=== PATIENT | female | born 1925 | race Caucasian/White ===

== ENCOUNTER 2016-09-13 12:32 | Inpatient (IN) | payer OTHER ==
[2016-09-13 13:46] LABS: BASOPHIL 1.1 % (0-2.0); EOSINOPHIL 2.5 % (0-4.5); MCH 29.5 pg (25.7-33.7); MCHC 32.5 g/dl (32.0-36.0); MEAN CELL VOLUME 90.7 fl (80-96); MEAN PLT VOLUME 10.5 fl (7.5-11.1); NEUTROPHILS 56.6 % (42.8-82.8); PLATELET COUNT 181 K/MM3 (134-434); RDW 13.8 % (11.6-15.6); WHITE BLOOD COUNT 7.1 K/mm3 (4.0-10.0)
--- NOTE | 2016-09-13 13:50 | PDOC ---
Attending Attestation - Resident Resident Name: SusanSabas - ED Attending Attestation I have performed the following: I have examined & evaluated the patient, The case was reviewed & discussed with the resident, I agree w/resident's findings & plan, Exceptions are as noted - HPI HPI: 09/13/16 13:50 89yF hx of chf, htn, pancreatitic tumors presents with complaint of exertional sob/palpitations over the past week, went to her GI doctor who noticed pt seeemd irregular and sent to the ED for evaluation for possible afib. pt notes when she is at rest, she feels asypmtomatic, but any ambulation makes her feel generally weak and sob. pt denies any cough, cp, diaphoresis, n/v. pt currently asymtomatic. on exam pt in well appearing, i no distress lungs clear HR regular 09/13/16 16:39 case neftali ramírez request JOHANNA w/ second trop and lasix > observation in telmetry will notify dr. Caro 09/13/16 16:55 case dw Indrain from Dr Wilson service agree with tele obs for management of KIR[place] Case discussed in detail with admitting physician including history, physical exam and ancillary studies. Admitting physician has assumed care for the patient, will follow all pending diagnostics and will complete the evaluation and treatment. - Physicial Exam PE: 09/14/16 17:43 see above - Medical Decision Making 09/14/16 17:43 see above Heart Score/ECG Review - ECG Impressions Comment:: 09/13/16 16:56 Twelve-lead EKG was performed and reviewed by me. There is normal sinus rhythm with a normal rate. Rate of 81 LBBB PVCs present
[2016-09-13 14:00] VITALS: BMI 41.1
[2016-09-13 14:00] LABS: INR 1.13 (0.82-1.09); PROTHROMBIN TIME (PATIENT) 12.5 SEC (9.98-11.88)
[2016-09-13 14:02] LABS: ACTIVATED PTT 29.9 SECONDS (26.9-34.4)
[2016-09-13 14:15] LABS: ALBUMIN 3.4 g/dl (3.4-5.0); ANION GAP 9 (8-16); CALCIUM 8.9 mg/dL (8.5-10.1); CO2 24 mmol/L (21-32); CREATININE 1.4 mg/dL (0.55-1.02); GLUCOSE,RANDOM 95 mg/dL (74-106); SGPT/ALT 19 U/L (12-78)
[2016-09-13 14:19] LABS: ALK PHOS 143 U/L (45-117); BILIRUBIN,TOTAL 0.6 mg/dL (0.2-1.0); TOT PROT 6.2 g/dl (6.4-8.2); TROPONIN I < 0.02 ng/ml (0.00-0.05)
[2016-09-13 14:31] LABS: SGOT/AST 28 U/L (15-37)
--- NOTE | 2016-09-13 15:13 | PDOC ---
History of Present Illness <Sabas Davis - Last Filed: 09/13/16 15:16> <Jeffrey Delcid - Last Filed: 09/13/16 16:54> - General Chief Complaint: Palpitations Stated Complaint: PCP SENT Time Seen by Provider: 09/13/16 13:02 - History of Present Illness Initial Comments: 09/13/16 15:05 89F with pmh of CHF, PVC's, HTN and pancreatic tumors who presented to the ED after an episode of palpitation and shakiness while at her GI provider Dr. Munroe 's clinic at 9:30 who checked her pulse and told her to go to the ED for possible A-fib. Patient was back to baseline in this current encounter. Patient regularly checks her BP and HR on bracelet which indicated 137/61 and 40 at 7:45am. No chest chest pain, diaphoresis or shortness of breath. (Sabas Davis) Past History - Past Medical History Anemia: No Asthma: No Cancer: No Cardiac Disorders: No (heart catherization) CVA: No COPD: No CHF: No Dementia: No Diabetes: No GI Disorders: Yes (Pacreatic tumors, gallstones) Disorders: Yes (INTERSTIM,INCONTINENCE) HTN: Yes Hypercholesterolemia: No Liver Disease: No Seizures: No Thyroid Disease: No Other medical history: bladder neurostimulator RT buttocks - Surgical History Abdominal Surgery: No Appendectomy: Yes Cardiac Surgery: No Cholecystectomy: No Lung Surgery: No Neurologic Surgery: Yes (LAMINECTOMY WITH FUSION) Orthopedic Surgery: Yes (FX ANKLE WITH HARDWARE) - Immunization History Immunization Up to Date: Yes - Psycho/Social/Smoking Cessation Hx Anxiety: No Suicidal Ideation: No Smoking History: Never smoked Have you smoked in the past 12 months: No Information on smoking cessation initiated: Yes Hx Alcohol Use: No Drug/Substance Use Hx: No Substance Use Type: None Hx Substance Use Treatment: No <Sabas Davis - Last Filed: 09/13/16 15:16> <Jeffrey Delcid - Last Filed: 09/13/16 16:54> - Past Medical History Allergies/Adverse Reactions: Allergies Allergy/AdvReac Type Severity Reaction Status Date / Time nitrofurantoin Allergy Intermediate FLU LIKE Verified 09/13/16 12:53 [From Macrobid] SYMPTOMS nitrofurantoin Allergy Intermediate FLU LIKE Verified 09/13/16 12:53 macrocrystalline SYMPTOMS [From Macrobid] naproxen [From Naprosyn] Allergy Verified 09/13/16 12:53 Home Medications: Ambulatory Orders Aspirin Coated [Ecotrin -] 81 mg PO DAILY 07/12/13 Cholecalciferol (Vitamin D3) [Vitamin D] 4,000 unit PO DAILY 07/12/13 Dexlansoprazole [Dexilant -] 60 mg PO DAILY 07/12/13 Econazole Nitrate 1% [Spectazole 1%] 85 gm TP DAILY 07/12/13 Folic Acid - 3 mg PO TID 07/12/13 Polysorbate 80/Glycerin [Refresh Dry Eye Therapy Drops] 1 each OP BID 07/12/13 Celecoxib [Celebrex] 200 mg PO ASDIR 07/13/13 Ramipril [Altace] 10 mg PO DAILY capsule 03/02/14 Cranberry Conc/C/Bacill Coag [Cranberry Tablet] 2 cap PO DAILY 09/19/14 Cyanocobalamin [Vitamin B12 -] 1,000 mcg PO DAILY 09/19/14 Gluc HCl/Csana/Gly-Am-Gly,Mx/C [Cosamin Ds Capsule] 1 each PO DAILY 09/19/14 Rotigotine [Neupro] 1 each TD DAILY 09/19/14 Furosemide [Lasix -] 20 mg PO DAILY 09/21/14 Furosemide [Lasix -] 40 mg PO AM 09/21/14 Calcium Citrate 1 tab PO DAILY 09/27/15 Carvedilol [Coreg -] 3.125 mg PO DAILY 09/27/15 Lactobacillus Acidophilus [Acidophilus] 1 each PO PRN 09/27/15 Tolterodine Tartrate [Detrol LA] 1 cap PO HS 09/27/15 Spironolactone [Aldactone] 25 mg PO DAILY 10/02/15 Cardiac Specific PMH - Complaint Specific PMHX Pacemaker: No Other History: sinus rhythm with PVC's on EKG oct 2015 <Sabas Davis - Last Filed: 09/13/16 15:16> Review of Systems - Review of Systems Constitutional: No: Symptoms Reported HEENTM: No: Symptoms Reported Respiratory: Yes: SOB with Exertion. No: Cough, Orthopnea, Stridor, Wheezing, Hemoptysis Cardiac (ROS): Yes: See HPI, Irregular Heart Rate, Palpitations. No: Chest Pain , Syncope, Chest Tightness ABD/GI: No: Symptoms Reported : No: Symptoms Reported Musculoskeletal: No: Symptoms Reported Integumentary: No: Symptoms Reported Neurological: Yes: Tremors <Sabas Davis Last Filed: 09/13/16 15:16> *Physical Exam - Physical Exam General Appearance: Yes: Nourished, Appropriately Dressed. No: Apparent Distress, Moderate Distress HEENT: positive: EOMI, HAI Neck: positive: Normal Thyroid. negative: Tender Respiratory/Chest: positive: Lungs Clear, Normal Breath Sounds. negative: Chest Tender, Respiratory Distress Cardiovascular: positive: Regular Rate, S1, S2. negative: Irregular Extremity: positive: Normal Capillary Refill, Normal Inspection, Normal Range of Motion. negative: Coldness, Cyanosis, Delayed Capillary Refill, Pedal Edema , Swelling, Calf Tenderness Integumentary: positive: Normal Color Neurologic: positive: Fully Oriented, Alert, Normal Mood/Affect <Sabas Davis - Last Filed: 09/13/16 15:16> - Vital Signs Last Vital Signs Temp Pulse Resp BP Pulse Ox 98.2 F 81 20 135/80 99 09/13/16 16:07 09/13/16 16:07 09/13/16 16:07 09/13/16 16:07 09/13/16 16:07 Heart Score/ECG Review - History History: Moderately suspicious - Age Age: >/= 65 - Risk Factors Risk Factors Heart Score: No Hx Hypercholesterolemia, Yes Hx Hypertension, No Hx Diabetes, Yes Positive family hx of cardiac disease - Troponin Troponin: </= normal limit - ECG Intrepretation Rhythm: PVC(s) <Sabas Davis - Last Filed: 09/13/16 15:16> ED Treatment Course - LABORATORY CBC & Chemistry Diagram: 09/13/16 13:19 09/13/16 13:19 <Sabas Davis - Last Filed: 09/13/16 15:16> - LABORATORY CBC & Chemistry Diagram: 09/13/16 13:19 09/13/16 13:19 <Jeffrey Delcid - Last Filed: 09/13/16 16:54> - ADDITIONAL ORDERS Additional order review: Laboratory Results 09/13/16 09/13/16 13:19 13:19 INR 1.13 PTT (Actin FS) 29.9 Sodium 140 Potassium 5.3 H D Chloride 107 Carbon Dioxide 24 D Anion Gap 9 BUN 22 H Creatinine 1.4 H Creat Clearance w eGFR 35.41 Random Glucose 95 Calcium 8.9 Total Bilirubin 0.6 D AST 28 D ALT 19 Alkaline Phosphatase 143 H Creatine Kinase 139 Troponin I < 0.02 Total Protein 6.2 L Albumin 3.4 09/13/16 13:19 RBC 4.40 MCV 90.7 MCHC 32.5 RDW 13.8 MPV 10.5 Neutrophils % 56.6 Lymphocytes % 29.1 Monocytes % 10.7 H Eosinophils % 2.5 Basophils % 1.1 - RADIOLOGY Radiology Studies Ordered: Category Date Time Status CHEST X-RAY PORTABLE* [RAD] Stat Radiology 09/13/16 16:10 Taken Medical Decision Making <Sabas Davis - Last Filed: 09/13/16 15:16> <Jeffrey Delcid - Last Filed: 09/13/16 16:54> - Medical Decision Making 09/13/16 15:22 89F with pmh of CHF, PVC's , pancreatic tumors and HTN who presented to the ED for palpitations and shakiness R/O VA, acute A-fib. labs, lytes coags and trops all negative. EKG shows 2:1 sinus rhythm with regular PVC's but but patient was feeling at her baseline we she got to the ED. 3pm: Talked to Dr. Mendoza concrete pointer for Dr Iglesias, the patient's caretaker, who will see the patient in the ED. (Sabas Davis) *DC/Admit/Observation/Transfer <Sabsa Davis - Last Filed: 09/13/16 15:16> - Discharge Dispostion Admit: Yes <Jeffrey Delcid - Last Filed: 09/13/16 16:54> Diagnosis at time of Disposition: Short of breath on exertion, Palpitations - Discharge Dispostion Condition at time of disposition: Stable
--- NOTE | 2016-09-13 15:49 | CON.CARD ---
Consult Consult Specialty:: Cardiology Referred by:: Emergency Medicine Reason for Consultation:: PVC, palpitations - History of Present Illness Chief Complaint: Palpitations, [place], exertional fatigue History of Present Illness: 89 yo female h/o HTN, hyperlipidemia, PVC, LV systolic dysfunction presents with episode of non-radiating chest pressure after swimming without associated sxs of dyspnea, near or true syncope, orthopnea, PND or worsening chronic LE edema, currently asymptomatic. - History Source History Provided By: Patient Limitations to Obtaining History: No Limitations - Past Medical History Cardio/Vascular: Yes: CHF, HTN, Mitral Insufficiency Gastrointestinal: Yes: Constipation Infectious Disease: Yes: Other (kleb UTI treated with kefzol/keflex) Musculoskeletal: Yes: Chronic low back pain, Osteoarthritis Endocrine: Yes: Other (obesity) - Past Surgical History Past Surgical History: Yes: Hysterectomy, Tonsillectomy - Alcohol/Substance Use Hx Alcohol Use: No - Smoking History Smoking history: Never smoked Have you smoked in the past 12 months: No Home Medications - Allergies Allergies/Adverse Reactions: Allergies Allergy/AdvReac Type Severity Reaction Status Date / Time nitrofurantoin Allergy Intermediate FLU LIKE Verified 09/13/16 12:53 [From Macrobid] SYMPTOMS nitrofurantoin Allergy Intermediate FLU LIKE Verified 09/13/16 12:53 macrocrystalline SYMPTOMS [From Macrobid] naproxen [From Naprosyn] Allergy Verified 09/13/16 12:53 - Home Medications Home Medications: Ambulatory Orders Aspirin Coated [Ecotrin -] 81 mg PO DAILY 07/12/13 Cholecalciferol (Vitamin D3) [Vitamin D] 4,000 unit PO DAILY 07/12/13 Dexlansoprazole [Dexilant -] 60 mg PO DAILY 07/12/13 Econazole Nitrate 1% [Spectazole 1%] 85 gm TP DAILY 07/12/13 Folic Acid - 3 mg PO TID 07/12/13 Polysorbate 80/Glycerin [Refresh Dry Eye Therapy Drops] 1 each OP BID 07/12/13 Celecoxib [Celebrex] 200 mg PO ASDIR 07/13/13 Ramipril [Altace] 10 mg PO DAILY capsule 03/02/14 Cranberry Conc/C/Bacill Coag [Cranberry Tablet] 2 cap PO DAILY 09/19/14 Cyanocobalamin [Vitamin B12 -] 1,000 mcg PO DAILY 09/19/14 Gluc HCl/Csana/Gly-Am-Gly,Mx/C [Cosamin Ds Capsule] 1 each PO DAILY 09/19/14 Rotigotine [Neupro] 1 each TD DAILY 09/19/14 Furosemide [Lasix -] 20 mg PO DAILY 09/21/14 Furosemide [Lasix -] 40 mg PO AM 09/21/14 Calcium Citrate 1 tab PO DAILY 09/27/15 Carvedilol [Coreg -] 3.125 mg PO DAILY 09/27/15 Lactobacillus Acidophilus [Acidophilus] 1 each PO PRN 09/27/15 Tolterodine Tartrate [Detrol LA] 1 cap PO HS 09/27/15 Spironolactone [Aldactone] 25 mg PO DAILY 10/02/15 Review of Systems - Review of Systems Respiratory: reports: SOB on Exertion Vital Signs: Vital Signs Temperature 98.1 F 09/13/16 12:51 Pulse Rate 49 L 09/13/16 12:51 Respiratory Rate 18 09/13/16 12:51 Blood Pressure 121/43 09/13/16 12:51 O2 Sat by Pulse Oximetry (%) 98 09/13/16 13:16 Constitutional: Yes: No Distress, Calm Neck: Yes: Supple Respiratory: Yes: Regular, Diminished Gastrointestinal: Yes: Normal Bowel Sounds, Soft, Distention Cardiovascular: Yes: Regular Rate and Rhythm JVD: No Carotid Bruit: No Heart Sounds: Yes: S1, S2 Murmur: Yes: Systolic Murmur, Grade 2 Edema: Yes Edema: LLE: Trace, RLE: Trace - Other Data Labs, Other Data: CBC, BMP 09/13/16 13:19 09/13/16 13:19 INR, PTT INR 1.13 (0.82-1.09) 09/13/16 13:19 Troponin, BNP 09/13/16 13:19 Troponin I < 0.02 Troponin, BNP 09/13/16 13:19 Troponin I < 0.02 NSR @ 81 ventricular trigeminy Echo: Report Reviewed Ejection Fraction %: LVEF < 40 % Imaging - Results Chest X-ray: Pending Problem List - Problems (1) CAD (coronary artery disease) Code(s): I25.10 - ATHSCL HEART DISEASE OF LIME CORONARY ARTERY W/O ANG PCTRS Qualifiers: Coronary Disease-Associated Artery/Lesion type: [place] artery [place] vs. transplanted heart: [place] heart Associated angina: without angina Qualified Code(s): I25.10 - Atherosclerotic heart disease of [place] coronary artery without angina pectoris (2) Hypertensive cardiomyopathy Code(s): I11.9 - HYPERTENSIVE HEART DISEASE WITHOUT HEART FAILURE I42.9 - CARDIOMYOPATHY, UNSPECIFIED Qualifiers: Heart failure presence: with heart failure Qualified Code(s): I11.0 - Hypertensive heart disease with heart failure; I43 - Cardiomyopathy in diseases classified elsewhere (3) Left bundle branch block Code(s): I44.7 - LEFT BUNDLE-BRANCH BLOCK, UNSPECIFIED (4) Premature ventricular contraction Code(s): I49.3 - VENTRICULAR PREMATURE DEPOLARIZATION (5) Systolic and diastolic CHF, acute on chronic Code(s): I50.43 - ACUTE ON CHRONIC COMBINED SYSTOLIC AND DIASTOLIC HRT FAIL (6) Moderate to severe mitral regurgitation Code(s): I34.0 - NONRHEUMATIC MITRAL (VALVE) INSUFFICIENCY Assessment/Plan R&LHc at [facility] 09/28/2015. Normal right sided pressures with LVEDP and PCWP demonstrating euvolemia, nonobstrucive CAD (30% mRCA, 30% pLAD,) severely decreased LV fxn without sig valve abnormalities, remained in ventricular quadrigeminy throughout study. 09/26/2015 Moderate size, mild lateral ischemia, LVEF 29% 09/27/3015 Mildly dilated LV with mod-severely decreased LV fxn with mod-severe MR 01/09/2016 [facility] Moderately dilated LV with mod-severe LVEF 36% 1. Palpitations referable to PVC, r/o PAF 2. Acute on chronic severely decreased LV systolic failure with mod-severe MR 3. Non-obstructive CAD 4. Hypertensive cardiomyopathy 5. Acute on CKD with hyperkalemia referable to #2 6. Left bundle branch block P:1. IV diuresis with monitor diuretic response, renal fxn and electrolytes, hold spirinolactone pending resolution of hyperkalemia 2. Continue ASA 81 qd, carvedilol 6.25 bid and ramipril 2.5 qd 3. F/u CXR, check BNP and TSH 4. Thank you for consultative opportunity
[2016-09-13] MEDS: FUROSEMIDE 40 MG/4 ML INJECTABLE VIAL IVPB SCH (16:30)
[2016-09-13] MEDS ORDERED: FUROSEMIDE 40 MG/4 ML INJECTABLE VIAL ONE (16:34)
[2016-09-13] MEDS ORDERED: PATIENT'S OWN MEDICATION (NON-FORMULARY) (Lactobacillus Acidophilus [Acidophilus] 1 EACH) PO SCH (17:30)
[2016-09-13] MEDS ORDERED: CELECOXIB 200 MG PO SCH (17:30)
[2016-09-13] MEDS: RAMIPRIL 2.5 MG CAPSULE (FP) PO SCH (18:52)
[2016-09-13] MEDS: CARVEDILOL 6.25 MG TABLET (FP) PO SCH ×2 (18:52→21:30)
[2016-09-13] MEDS: HEPARIN NA (PORCINE) 5,000 UNITS/ML 1ML VIAL SQ SCH (21:29)
[2016-09-13] MEDS: FOLIC ACID 1 MG TABLET (FP) PO SCH (21:30)
[2016-09-13] MEDS: TOLTERODINE TARTRATE LA 2 MG CAP.SR.24H PO SCH (21:30)
[2016-09-13] MEDS ORDERED: CARVEDILOL 6.25 MG TABLET (FP) PO SCH (22:00)
[2016-09-13] MEDS ORDERED: [UNRECOGNIZED DRUG - OTHER] OP SCH (22:00)
[2016-09-14] MEDS: FOLIC ACID 1 MG TABLET (FP) PO SCH ×3 (06:11→21:23)
[2016-09-14] MEDS ORDERED: FUROSEMIDE 40 MG TABLET (FP) PO SCH (07:00)
[2016-09-14 07:29] LABS: EOSINOPHIL 3.1 % (0-4.5); MCHC 33.1 g/dl (32.0-36.0); MEAN CELL VOLUME 90.6 fl (80-96); MEAN PLT VOLUME 9.9 fl (7.5-11.1); NEUTROPHILS 50.3 % (42.8-82.8); PLATELET COUNT 173 K/MM3 (134-434); RDW 14.2 % (11.6-15.6); WHITE BLOOD COUNT 5.8 K/mm3 (4.0-10.0)
[2016-09-14 08:02] LABS: GLUCOSE,RANDOM 92 mg/dL (74-106)
[2016-09-14] MEDS: CARVEDILOL 6.25 MG TABLET (FP) PO SCH ×3 (08:15→21:24)
[2016-09-14] MEDS: HEPARIN NA (PORCINE) 5,000 UNITS/ML 1ML VIAL SQ SCH ×3 (08:15→21:24)
[2016-09-14] MEDS: FUROSEMIDE 40 MG/4 ML INJECTABLE VIAL IVPB SCH ×2 (08:15→09:10)
[2016-09-14] MEDS: RAMIPRIL 2.5 MG CAPSULE (FP) PO SCH ×2 (08:15→09:10)
[2016-09-14 08:24] LABS: ANION GAP 8 (8-16); CALCIUM 8.7 mg/dL (8.5-10.1); CO2 28 mmol/L (21-32); MAGNESIUM 2.4 mg/dL (1.8-2.4)
[2016-09-14] MEDS: CHOLECALCIFEROL (VITAMIN D3) 1,000 UNIT TABLET (FP) PO SCH ×2 (08:28→09:11)
[2016-09-14] MEDS: CYANOCOBALAMIN 1,000 MCG TABLET (FP) PO SCH ×2 (08:28→09:11)
[2016-09-14] MEDS: ASPIRIN 81 MG CHEWABLE TABLETS PO SCH ×2 (08:30→09:10)
[2016-09-14 08:31] LABS: CHOLESTEROL 152 mg/dL (50-200); CREATININE 1.4 mg/dL (0.55-1.02); LDL CHOLESTEROL (ONLY SJRH) 79 mg/dL (5-100); TROPONIN I < 0.02 ng/ml (0.00-0.05)
[2016-09-14] MEDS: PANTOPRAZOLE 40 MG TABLET (FP) PO SCH (09:10)
--- NOTE | 2016-09-14 09:31 | HP ---
Admitting History and Physical - Admission History of Present Illness: 89yF hx of chf, htn, pancreatic tumors presents with complaint of exertional sob /palpitations over the past week, went to her GI doctor who noticed pt hr seemed irregular and sent to the ED for evaluation for possible afib. pt notes when she is at rest, she feels asymptomatic, but any ambulation makes her feel generally weak and sob. pt denies any cough, cp, diaphoresis, n/v. pt currently asymptomatic. - Past Medical History Cardiovascular: Yes: CHF, HTN, Mitral Insufficiency, Other Gastrointestinal: Yes: Constipation Infectious Disease: Yes: Other (kleb UTI treated with kefzol/keflex) Musculoskeletal: Yes: Chronic low back pain, Osteoarthritis Endocrine: Yes: Other (obesity) - Past Surgical History Past Surgical History: Yes: Hysterectomy, Tonsillectomy - Smoking History Smoking history: Never smoked Have you smoked in the past 12 months: No - Alcohol/Substance Use Hx Alcohol Use: No Home Medications - Allergies Allergies/Adverse Reactions: Allergies Allergy/AdvReac Type Severity Reaction Status Date / Time nitrofurantoin Allergy Intermediate FLU LIKE Verified 09/13/16 12:53 [From Macrobid] SYMPTOMS nitrofurantoin Allergy Intermediate FLU LIKE Verified 09/13/16 12:53 macrocrystalline SYMPTOMS [From Macrobid] naproxen [From Naprosyn] Allergy Verified 09/13/16 12:53 - Home Medications Home Medications: Ambulatory Orders Aspirin Coated [Ecotrin -] 81 mg PO DAILY 07/12/13 Cholecalciferol (Vitamin D3) [Vitamin D] 4,000 unit PO DAILY 07/12/13 Dexlansoprazole [Dexilant -] 60 mg PO DAILY 07/12/13 Econazole Nitrate 1% [Spectazole 1%] 85 gm TP DAILY 07/12/13 Folic Acid - 3 mg PO TID 07/12/13 Polysorbate 80/Glycerin [Refresh Dry Eye Therapy Drops] 1 each OP BID 07/12/13 Celecoxib [Celebrex] 200 mg PO ASDIR 07/13/13 Ramipril [Altace] 10 mg PO DAILY capsule 03/02/14 Cranberry Conc/C/Bacill Coag [Cranberry Tablet] 2 cap PO DAILY 09/19/14 Cyanocobalamin [Vitamin B12 -] 1,000 mcg PO DAILY 09/19/14 Gluc HCl/Csana/Gly-Am-Gly,Mx/C [Cosamin Ds Capsule] 1 each PO DAILY 09/19/14 Rotigotine [Neupro] 1 each TD DAILY 09/19/14 Furosemide [Lasix -] 20 mg PO DAILY 09/21/14 Furosemide [Lasix -] 40 mg PO AM 09/21/14 Calcium Citrate 1 tab PO DAILY 09/27/15 Carvedilol [Coreg -] 3.125 mg PO DAILY 09/27/15 Lactobacillus Acidophilus [Acidophilus] 1 each PO PRN 09/27/15 Tolterodine Tartrate [Detrol LA] 1 cap PO HS 09/27/15 Spironolactone [Aldactone] 25 mg PO DAILY 10/02/15 Physical Examination Vital Signs: Vital Signs Temperature 97.8 F 09/14/16 05:55 Pulse Rate 90 09/14/16 05:55 Respiratory Rate 21 09/14/16 05:55 Blood Pressure 122/63 09/14/16 05:55 O2 Sat by Pulse Oximetry (%) 98 09/13/16 21:00 Cardiovascular: Yes: S1, S2 Respiratory: Yes: Regular, CTA Bilaterally Gastrointestinal: Yes: Normal Bowel Sounds, Soft Edema: No Labs: CBC, BMP 09/14/16 05:20 09/14/16 05:20 Imaging - Results X-ray: Report Reviewed Problem List - Problems (1) Systolic and diastolic CHF, acute on chronic Assessment/Plan: IV LASIX CARDIO AWAIT LABS Code(s): I50.43 - ACUTE ON CHRONIC COMBINED SYSTOLIC AND DIASTOLIC HRT FAIL (2) Moderate to severe mitral regurgitation Assessment/Plan: CARDIO ON BOARD CHECK ECHO Code(s): I34.0 - NONRHEUMATIC MITRAL (VALVE) INSUFFICIENCY (3) Hypertensive cardiomyopathy Code(s): I11.9 - HYPERTENSIVE HEART DISEASE WITHOUT HEART FAILURE I42.9 - CARDIOMYOPATHY, UNSPECIFIED Qualifiers: Heart failure presence: with heart failure Qualified Code(s): I11.0 - Hypertensive heart disease with heart failure; I43 - Cardiomyopathy in diseases classified elsewhere (4) Arrhythmia Assessment/Plan: HOLTER CARDIO LYTES [place] Code(s): I49.9 - CARDIAC ARRHYTHMIA, UNSPECIFIED
[2016-09-14] MEDS ORDERED: PATIENT'S OWN MEDICATION (NON-FORMULARY) (Econazole Nitrate 1% [Spectazole 1%] 85 GM) TP SCH (10:00)
[2016-09-14] MEDS ORDERED: SPIRONOLACTONE 25 MG TABLET (FP) PO SCH (10:00)
[2016-09-14] MEDS ORDERED: ASPIRIN COATED 81 MG TABLET.EC PO SCH (10:00)
[2016-09-14] MEDS ORDERED: CALCIUM CITRATE PO SCH (10:00)
[2016-09-14] MEDS ORDERED: PATIENT'S OWN MEDICATION (NON-FORMULARY) (Rotigotine [Neupro] 1 EACH) TD SCH (10:00)
[2016-09-14] MEDS ORDERED: RAMIPRIL 2.5 MG CAPSULE (FP) PO SCH (10:00)
[2016-09-14] MEDS ORDERED: RAMIPRIL 5 MG CAPSULE (FP) PO SCH (10:00)
[2016-09-14] MEDS ORDERED: CARVEDILOL 3.125 MG TABLET (FP) PO SCH (10:00)
[2016-09-14] MEDS ORDERED: [UNRECOGNIZED DRUG - MIXTURE] PO SCH (10:00)
--- NOTE | 2016-09-14 11:16 | CONSULT ---
Consult Consult Specialty:: Nephrology ( Jose/ Santos) Referred by:: Dr. Caro Reason for Consultation:: Abnormal kidney functions. - History of Present Illness Chief Complaint: 89yF hx of chf, htn, pancreatic tumor presents with complaint of exertional sob/palpitations over the past week, and for evaluation for possible afib. Has no chest pains.But she feels some chest discomfort on exertion. History of Present Illness: Has abnormal kidney function, and hence the consult. - History Source History Provided By: Patient, Medical Record - Past Medical History Cardio/Vascular: Yes: CHF, HTN, Mitral Insufficiency, Other Gastrointestinal: Yes: Constipation Renal/: Yes: Renal Inusuff Infectious Disease: Yes: Other (kleb UTI treated with kefzol/keflex) Musculoskeletal: Yes: Chronic low back pain, Osteoarthritis Endocrine: Yes: Other (obesity) - Past Surgical History Past Surgical History: Yes: Hysterectomy, Tonsillectomy - Alcohol/Substance Use Hx Alcohol Use: No - Smoking History Smoking history: Never smoked Have you smoked in the past 12 months: No Home Medications - Allergies Allergies/Adverse Reactions: Allergies Allergy/AdvReac Type Severity Reaction Status Date / Time nitrofurantoin Allergy Intermediate FLU LIKE Verified 09/13/16 12:53 [From Macrobid] SYMPTOMS nitrofurantoin Allergy Intermediate FLU LIKE Verified 09/13/16 12:53 macrocrystalline SYMPTOMS [From Macrobid] naproxen [From Naprosyn] Allergy Verified 09/13/16 12:53 - Home Medications Home Medications: Ambulatory Orders Aspirin Coated [Ecotrin -] 81 mg PO DAILY 07/12/13 Cholecalciferol (Vitamin D3) [Vitamin D] 4,000 unit PO DAILY 07/12/13 Dexlansoprazole [Dexilant -] 60 mg PO DAILY 07/12/13 Econazole Nitrate 1% [Spectazole 1%] 85 gm TP DAILY 07/12/13 Folic Acid - 3 mg PO TID 07/12/13 Polysorbate 80/Glycerin [Refresh Dry Eye Therapy Drops] 1 each OP BID 07/12/13 Celecoxib [Celebrex] 200 mg PO ASDIR 07/13/13 Ramipril [Altace] 10 mg PO DAILY capsule 03/02/14 Cranberry Conc/C/Bacill Coag [Cranberry Tablet] 2 cap PO DAILY 09/19/14 Cyanocobalamin [Vitamin B12 -] 1,000 mcg PO DAILY 09/19/14 Gluc HCl/Csana/Gly-Am-Gly,Mx/C [Cosamin Ds Capsule] 1 each PO DAILY 09/19/14 Rotigotine [Neupro] 1 each TD DAILY 09/19/14 Furosemide [Lasix -] 20 mg PO DAILY 09/21/14 Furosemide [Lasix -] 40 mg PO AM 09/21/14 Calcium Citrate 1 tab PO DAILY 09/27/15 Carvedilol [Coreg -] 3.125 mg PO DAILY 09/27/15 Lactobacillus Acidophilus [Acidophilus] 1 each PO PRN 09/27/15 Tolterodine Tartrate [Detrol LA] 1 cap PO HS 09/27/15 Spironolactone [Aldactone] 25 mg PO DAILY 10/02/15 Review of Systems - Review of Systems Constitutional: reports: Malaise, Weakness Cardiovascular: reports: Palpitations. denies: Chest Pain Respiratory: reports: Exercise Intolerance. denies: Cough, Hemoptysis Gastrointestinal: reports: Bloating. denies: Diarrhea, Vomiting Musculoskeletal: reports: Back Pain Neurological: reports: No Symptoms Physical Exam Vital Signs: Vital Signs Temperature 97.8 F 09/14/16 05:55 Pulse Rate 90 09/14/16 05:55 Respiratory Rate 21 09/14/16 05:55 Blood Pressure 122/63 09/14/16 05:55 O2 Sat by Pulse Oximetry (%) 98 09/13/16 21:00 Constitutional: Yes: Well Nourished, No Distress Eyes: Yes: Conjunctiva Clear HENT: Yes: Normocephalic Neck: Yes: Supple Cardiovascular: Yes: Pulse Irregular, S1, S2 Respiratory: Yes: CTA Bilaterally, Diminished Gastrointestinal: Yes: Normal Bowel Sounds, Abdomen, Obese Renal/: No: Anuria, Bladder Distention Labs: CBC, BMP 09/14/16 05:20 09/14/16 05:20 Assessment/Plan 89yF hx of chf, htn, pancreatic tumors presents with complaint of exertional sob /palpitations over the past week, New onset arrhythmia. ? SVT ? PAT Abnormal renal functions. 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 Can't r/o an Acute renal injury superimposed due to the renal hemodynamic compromise due to the cardiac arrhythmia. Suggest: Concur with the current management. Will monitor the renal functions. Will get a renal sonogram. Thank you. Will follow with you. Shilpa Garcia MD
[2016-09-14] MEDS: TOLTERODINE TARTRATE LA 2 MG CAP.SR.24H PO SCH (21:24)
[2016-09-15] MEDS: FOLIC ACID 1 MG TABLET (FP) PO SCH ×4 (05:38→22:00)
[2016-09-15] MEDS ORDERED: PT OWN MED DRAWER 7, Y5N ONE (06:04)
[2016-09-15 08:48] LABS: ALBUMIN 3.2 g/dl (3.4-5.0); ALK PHOS 144 U/L (45-117); ANION GAP 7 (8-16); BILIRUBIN,TOTAL 0.4 mg/dL (0.2-1.0); CALCIUM 8.8 mg/dL (8.5-10.1); CO2 30 mmol/L (21-32); CREATININE 1.5 mg/dL (0.55-1.02); GLUCOSE,RANDOM 96 mg/dL (74-106); MAGNESIUM 2.5 mg/dL (1.8-2.4); PHOSPHOROUS 3.8 mg/dL (2.5-4.9); SGOT/AST 9 U/L (15-37); SGPT/ALT 15 U/L (12-78); TOT PROT 5.7 g/dl (6.4-8.2); URIC ACID 8.8 mg/dL (2.6-7.2)
[2016-09-15] MEDS: RAMIPRIL 2.5 MG CAPSULE (FP) PO SCH (09:48)
[2016-09-15] MEDS: CARVEDILOL 6.25 MG TABLET (FP) PO SCH (09:48)
[2016-09-15] MEDS: CHOLECALCIFEROL (VITAMIN D3) 1,000 UNIT TABLET (FP) PO SCH (09:48)
[2016-09-15] MEDS: CYANOCOBALAMIN 1,000 MCG TABLET (FP) PO SCH (09:48)
[2016-09-15] MEDS: PANTOPRAZOLE 40 MG TABLET (FP) PO SCH (09:49)
[2016-09-15] MEDS: ASPIRIN 81 MG CHEWABLE TABLETS PO SCH (09:49)
[2016-09-15] MEDS: FUROSEMIDE 40 MG/4 ML INJECTABLE VIAL IVPB SCH (10:01)
[2016-09-15] MEDS: HEPARIN NA (PORCINE) 5,000 UNITS/ML 1ML VIAL SQ SCH ×2 (10:02→21:38)
--- NOTE | 2016-09-15 10:20 | PN ---
Progress Note, Physician History of Present Illness: FEELS BETTER NO CP OR SOB - Current Medication List Current Medications: Active Medications Aspirin (Asa -) 81 mg PO DAILY [facility] Last Admin: 09/15/16 09:49 Dose: 81 mg Carvedilol (Coreg -) 6.25 mg PO BID [facility] Last Admin: 09/15/16 09:48 Dose: 6.25 mg Cholecalciferol (Vitamin D3 -) 4,000 unit PO DAILY [facility] Last Admin: 09/15/16 09:48 Dose: 4,000 unit Cyanocobalamin (Vitamin B12 -) 1,000 mcg PO DAILY [facility] Last Admin: 09/15/16 09:48 Dose: 1,000 mcg Folic Acid (Folic Acid -) 3 mg PO TID [facility] Last Admin: 09/15/16 05:38 Dose: 3 mg Furosemide (Lasix -) 40 mg PO DAILY [facility] Heparin Sodium (Porcine) (Heparin -) 5,000 unit SQ BID [facility] Last Admin: 09/15/16 10:02 Dose: 5,000 unit Pantoprazole Sodium (Protonix -) 40 mg PO DAILY [facility] Last Admin: 09/15/16 09:49 Dose: 40 mg Ramipril (Altace -) 2.5 mg PO DAILY [facility] Last Admin: 09/15/16 09:48 Dose: 2.5 mg Tolterodine Tartrate (Detrol La -) 2 mg PO HS [facility] Last Admin: 09/14/16 21:24 Dose: 2 mg - Objective Vital Signs: Vital Signs Temperature 98.1 F 09/15/16 08:00 Pulse Rate 90 09/15/16 08:00 Respiratory Rate 18 09/15/16 08:00 Blood Pressure 125/60 09/15/16 08:00 O2 Sat by Pulse Oximetry (%) 98 09/14/16 21:00 Neck: Yes: Supple Cardiovascular: Yes: S1, S2 Respiratory: Yes: Regular, CTA Bilaterally Gastrointestinal: Yes: Normal Bowel Sounds, Soft Labs: CBC, BMP 09/14/16 05:20 09/15/16 05:50 INR, PTT INR 1.13 (0.82-1.09) 09/13/16 13:19 Problem List - Problems (1) Systolic and diastolic CHF, acute on chronic Assessment/Plan: IV LASIX--TO PO CARDIO ON BOARD AWAIT LABS Code(s): I50.43 - ACUTE ON CHRONIC COMBINED SYSTOLIC AND DIASTOLIC HRT FAIL (2) Moderate to severe mitral regurgitation Assessment/Plan: CARDIO ON BOARD CHECK ECHO Code(s): I34.0 - NONRHEUMATIC MITRAL (VALVE) INSUFFICIENCY (3) Hypertensive cardiomyopathy Code(s): I11.9 - HYPERTENSIVE HEART DISEASE WITHOUT HEART FAILURE I42.9 - CARDIOMYOPATHY, UNSPECIFIED Qualifiers: Heart failure presence: with heart failure Qualified Code(s): I11.0 - Hypertensive heart disease with heart failure; I43 - Cardiomyopathy in diseases classified elsewhere (4) Arrhythmia Assessment/Plan: HOLTER --AWAIT RESULTS CARDIO LYTES OK Code(s): I49.9 - CARDIAC ARRHYTHMIA, UNSPECIFIED
[2016-09-15] MEDS ORDERED: FUROSEMIDE 40 MG TABLET (FP) PO SCH (10:45)
--- NOTE | 2016-09-15 10:46 | PN ---
Progress Note, Physician History of Present Illness: Dyspnea on exertion and palpitations improving after diuresis. - Current Medication List Current Medications: Active Medications Aspirin (Asa -) 81 mg PO DAILY [facility] Last Admin: 09/15/16 09:49 Dose: 81 mg Carvedilol (Coreg -) 6.25 mg PO BID [facility] Last Admin: 09/15/16 09:48 Dose: 6.25 mg Cholecalciferol (Vitamin D3 -) 4,000 unit PO DAILY [facility] Last Admin: 09/15/16 09:48 Dose: 4,000 unit Cyanocobalamin (Vitamin B12 -) 1,000 mcg PO DAILY [facility] Last Admin: 09/15/16 09:48 Dose: 1,000 mcg Folic Acid (Folic Acid -) 3 mg PO TID [facility] Last Admin: 09/15/16 05:38 Dose: 3 mg Furosemide (Lasix -) 40 mg PO DAILY [facility] Heparin Sodium (Porcine) (Heparin -) 5,000 unit SQ BID [facility] Last Admin: 09/15/16 10:02 Dose: 5,000 unit Pantoprazole Sodium (Protonix -) 40 mg PO DAILY [facility] Last Admin: 09/15/16 09:49 Dose: 40 mg Ramipril (Altace -) 2.5 mg PO DAILY [facility] Last Admin: 09/15/16 09:48 Dose: 2.5 mg Tolterodine Tartrate (Detrol La -) 2 mg PO HS [facility] Last Admin: 09/14/16 21:24 Dose: 2 mg - Objective Vital Signs: Vital Signs Temperature 98.1 F 09/15/16 08:00 Pulse Rate 90 09/15/16 08:00 Respiratory Rate 18 09/15/16 08:00 Blood Pressure 125/60 09/15/16 08:00 O2 Sat by Pulse Oximetry (%) 98 09/14/16 21:00 Constitutional: Yes: No Distress, Calm Neck: Yes: Supple Cardiovascular: Yes: Regular Rate and Rhythm, Murmur (2/6 SM) Respiratory: Yes: Regular, Diminished Gastrointestinal: Yes: Normal Bowel Sounds, Soft Edema: No Labs: CBC, BMP 09/14/16 05:20 09/15/16 05:50 INR, PTT INR 1.13 (0.82-1.09) 09/13/16 13:19 - ....Imaging Chest X-ray: Report Reviewed (NAD) EKG: Report Reviewed (Tele: Jonathan LEROY) Problem List - Problems (1) CAD (coronary artery disease) Code(s): I25.10 - ATHSCL HEART DISEASE OF [place] CORONARY ARTERY W/O ANG PCTRS Qualifiers: Coronary Disease-Associated Artery/Lesion type: [place] artery [place] vs. transplanted heart: [place] heart Associated angina: without angina Qualified Code(s): I25.10 - Atherosclerotic heart disease of [place] coronary artery without angina pectoris (2) Hypertensive cardiomyopathy Code(s): I11.9 - HYPERTENSIVE HEART DISEASE WITHOUT HEART FAILURE I42.9 - CARDIOMYOPATHY, UNSPECIFIED Qualifiers: Heart failure presence: with heart failure Qualified Code(s): I11.0 - Hypertensive heart disease with heart failure; I43 - Cardiomyopathy in diseases classified elsewhere (3) Left bundle branch block Code(s): I44.7 - LEFT BUNDLE-BRANCH BLOCK, UNSPECIFIED (4) Premature ventricular contraction Code(s): I49.3 - VENTRICULAR PREMATURE DEPOLARIZATION (5) Systolic and diastolic CHF, acute on chronic Code(s): I50.43 - ACUTE ON CHRONIC COMBINED SYSTOLIC AND DIASTOLIC HRT FAIL (6) Moderate to severe mitral regurgitation Code(s): I34.0 - NONRHEUMATIC MITRAL (VALVE) INSUFFICIENCY Assessment/Plan R&LHc at [facility] 09/28/2015. Normal right sided pressures with LVEDP and PCWP demonstrating euvolemia, nonobstrucive CAD (30% mRCA, 30% pLAD,) severely decreased LV fxn without sig valve abnormalities, remained in ventricular quadrigeminy throughout study. 09/26/2015 Moderate size, mild lateral ischemia, LVEF 29% 09/27/3015 Mildly dilated LV with mod-severely decreased LV fxn with mod-severe MR 01/09/2016 [facility] Moderately dilated LV with mod-severe LVEF 36% 1. Palpitations referable to PVC, r/o PAF 2. Acute on chronic severely decreased LV systolic failure with mod-severe MR improving 3. Non-obstructive CAD 4. Hypertensive cardiomyopathy 5. Acute on CKD with resolved hyperkalemia referable to #2 6. Left bundle branch block P:1. Resume Aldactone 25 qd and continue Lasix 20 qd with monitor diuretic response, renal fxn and electrolytes 2. Continue ASA 81 qd, carvedilol 6.25 bid and ramipril 2.5 qd 3. Encourage ambulation, f/u holter results
[2016-09-15 11:29] LABS: BASOPHIL 1.2 % (0-2.0); EOSINOPHIL 2.5 % (0-4.5); MCH 29.5 pg (25.7-33.7); MCHC 32.7 g/dl (32.0-36.0); MEAN CELL VOLUME 90.4 fl (80-96); MEAN PLT VOLUME 10.5 fl (7.5-11.1); PLATELET COUNT 172 K/MM3 (134-434); RDW 14.2 % (11.6-15.6); WHITE BLOOD COUNT 6.2 K/mm3 (4.0-10.0)
[2016-09-15] MEDS: SPIRONOLACTONE 25 MG TABLET (FP) PO SCH (11:30)
[2016-09-15] MEDS: FUROSEMIDE 20 MG TABLET (FP) PO SCH (11:31)
[2016-09-15] MEDS ORDERED: CARVEDILOL 6.25 MG TABLET (FP) PO ONE (13:00)
[2016-09-15] MEDS: CARVEDILOL 12.5 MG TABLET (FP) PO SCH (21:37)
[2016-09-15] MEDS: TOLTERODINE TARTRATE LA 2 MG CAP.SR.24H PO SCH (21:38)
[2016-09-16] MEDS: FOLIC ACID 1 MG TABLET (FP) PO SCH ×2 (05:29→13:40)
[2016-09-16 07:35] LABS: ANION GAP 6 (8-16); CO2 29 mmol/L (21-32); CREATININE 1.5 mg/dL (0.55-1.02); GLUCOSE,RANDOM 94 mg/dL (74-106)
--- NOTE | 2016-09-16 08:20 | DS ---
Physical Examination Vital Signs: Vital Signs Temperature 97.7 F 09/16/16 05:48 Pulse Rate 65 09/16/16 05:48 Respiratory Rate 18 09/16/16 05:48 Blood Pressure 133/55 09/16/16 05:48 O2 Sat by Pulse Oximetry (%) 97 09/15/16 21:00 Cardiovascular: Yes: S1, S2 Respiratory: Yes: Regular, CTA Bilaterally Gastrointestinal: Yes: Normal Bowel Sounds, Soft Labs: CBC, BMP 09/15/16 11:00 09/16/16 05:35 Discharge Summary Reason For Visit: PALPITATONS; SHORTNESS OF BREATH ON EXERTION Current Active Problems Arrhythmia (Acute) Moderate to severe mitral regurgitation (Acute) Palpitations (Acute) SOB (shortness of breath) on exertion (Acute) Hospital Course: History of Present Illness: 89yF hx of chf, htn, pancreatic tumors presents with complaint of exertional sob /palpitations over the past week, went to her GI doctor who noticed pt hr seemed irregular and sent to the ED for evaluation for possible afib. pt notes when she is at rest, she feels asymptomatic, but any ambulation makes her feel generally weak and sob. pt denies any cough, cp, diaphoresis, n/v. pt currently asymptomatic. - Past Medical History Cardiovascular: Yes: CHF, HTN, Mitral Insufficiency, Other Gastrointestinal: Yes: Constipation Infectious Disease: Yes: Other (kleb UTI treated with kefzol/keflex) Musculoskeletal: Yes: Chronic low back pain, Osteoarthritis Endocrine: Yes: Other (obesity) - Past Surgical History Past Surgical History: Yes: Hysterectomy, Tonsillectomy - Problems (1) Systolic and diastolic CHF, acute on chronic Assessment/Plan: IV LASIX--TO PO CARDIO ON BOARD AWAIT LABS Code(s): I50.43 - ACUTE ON CHRONIC COMBINED SYSTOLIC AND DIASTOLIC HRT FAIL (2) Moderate to severe mitral regurgitation Assessment/Plan: CARDIO ON BOARD CHECK ECHO Code(s): I34.0 - NONRHEUMATIC MITRAL (VALVE) INSUFFICIENCY (3) Hypertensive cardiomyopathy Code(s): I11.9 - HYPERTENSIVE HEART DISEASE WITHOUT HEART FAILURE I42.9 - CARDIOMYOPATHY, UNSPECIFIED Qualifiers: Heart failure presence: with heart failure Qualified Code(s): I11.0 - Hypertensive heart disease with heart failure; I43 - Cardiomyopathy in diseases classified elsewhere (4) Arrhythmia Assessment/Plan: HOLTER --- RESULTS PER CARDIO CARDIO NOTED LYTES OK Code(s): I49.9 - CARDIAC ARRHYTHMIA, UNSPECIFIED Condition: Improved - Instructions Referrals: Easton Caro MD [Staff Physician] - Gerardo Keller MD [Primary Care Provider] - Mike Graham MD [Staff Physician] - Juan Mendoza MD [Staff Physician] - Disposition: HOME - Home Medications Comprehensive Discharge Medication List: Ambulatory Orders Aspirin Coated [Ecotrin -] 81 mg PO DAILY 07/12/13 Cholecalciferol (Vitamin D3) [Vitamin D] 4,000 unit PO DAILY 07/12/13 Dexlansoprazole [Dexilant -] 60 mg PO DAILY 07/12/13 Econazole Nitrate 1% [Spectazole 1%] 85 gm TP DAILY 07/12/13 Folic Acid - 3 mg PO TID 07/12/13 Polysorbate 80/Glycerin [Refresh Dry Eye Therapy Drops] 1 each OP BID 07/12/13 Cranberry Conc/C/Bacill Coag [Cranberry Tablet] 2 cap PO DAILY 09/19/14 Cyanocobalamin [Vitamin B12 -] 1,000 mcg PO DAILY 09/19/14 Gluc HCl/Csana/Gly-Am-Gly,Mx/C [Cosamin Ds Capsule] 1 each PO DAILY 09/19/14 Rotigotine [Neupro] 1 each TD DAILY 09/19/14 Furosemide [Lasix -] 40 mg PO AM 09/21/14 Calcium Citrate 1 tab PO DAILY 09/27/15 Lactobacillus Acidophilus [Acidophilus] 1 each PO PRN 09/27/15 Tolterodine Tartrate [Detrol LA] 1 cap PO HS 09/27/15 Spironolactone [Aldactone -] 25 mg PO DAILY 10/02/15 Carvedilol [Coreg -] 12.5 mg PO BID #60 tablet 09/16/16 Ramipril [Altace] 2.5 mg PO DAILY #30 tab 09/16/16
--- NOTE | 2016-09-16 09:20 | EKG ---
Test Reason : Blood Pressure : / mmHG Vent. Rate : 086 BPM Atrial Rate : 065 BPM P-R Int : 194 ms QRS Dur : 150 ms QT Int : 454 ms P-R-T Axes : 070 035 219 degrees QTc Int : 543 ms SINUS RHYTHM WITH FREQUENT and consecutive PREMATURE VENTRICULAR COMPLEXES LEFT BUNDLE BRANCH BLOCK ABNORMAL ECG WHEN COMPARED WITH ECG OF 13-SEP-2016 13:16, QRS DURATION HAS INCREASED T WAVE INVERSION NOW EVIDENT IN INFERIOR LEADS QT HAS LENGTHENED Confirmed by CHARLA GODFREY MD ([id number]) on 09/16/2016 9:19:43 AM Referred By: Maya ARNETT Confirmed By:CHARLA GODFREY MD
--- NOTE | 2016-09-16 09:25 | PN ---
Progress Note, Physician History of Present Illness: Dyspnea on exertion and palpitations improving after diuresis. - Current Medication List Current Medications: Active Medications Aspirin (Asa -) 81 mg PO DAILY [facility] Last Admin: 09/15/16 09:49 Dose: 81 mg Carvedilol (Coreg -) 12.5 mg PO BID [facility] Last Admin: 09/15/16 21:37 Dose: 12.5 mg Cholecalciferol (Vitamin D3 -) 4,000 unit PO DAILY [facility] Last Admin: 09/15/16 09:48 Dose: 4,000 unit Cyanocobalamin (Vitamin B12 -) 1,000 mcg PO DAILY [facility] Last Admin: 09/15/16 09:48 Dose: 1,000 mcg Folic Acid (Folic Acid -) 3 mg PO TID [facility] Last Admin: 09/16/16 05:29 Dose: Not Given Furosemide (Lasix -) 20 mg PO DAILY [facility] Last Admin: 09/15/16 11:31 Dose: 20 mg Heparin Sodium (Porcine) (Heparin -) 5,000 unit SQ BID [facility] Last Admin: 09/15/16 21:38 Dose: 5,000 unit Pantoprazole Sodium (Protonix -) 40 mg PO DAILY [facility] Last Admin: 09/15/16 09:49 Dose: 40 mg Ramipril (Altace -) 2.5 mg PO DAILY [facility] Last Admin: 09/15/16 09:48 Dose: 2.5 mg Spironolactone (Aldactone -) 25 mg PO DAILY [facility] Last Admin: 09/15/16 11:30 Dose: 25 mg Tolterodine Tartrate (Detrol La -) 2 mg PO HS [facility] Last Admin: 09/15/16 21:38 Dose: 2 mg - Objective Vital Signs: Vital Signs Temperature 97.7 F 09/16/16 05:48 Pulse Rate 65 09/16/16 05:48 Respiratory Rate 18 09/16/16 05:48 Blood Pressure 133/55 09/16/16 05:48 O2 Sat by Pulse Oximetry (%) 97 09/15/16 21:00 Constitutional: Yes: No Distress, Calm Neck: Yes: Supple Cardiovascular: Yes: Regular Rate and Rhythm, Murmur (2/6 SM) Respiratory: Yes: Regular, Diminished Gastrointestinal: Yes: Normal Bowel Sounds, Soft Edema: No Labs: CBC, BMP 09/15/16 11:00 09/16/16 05:35 INR, PTT INR 1.13 (0.82-1.09) 09/13/16 13:19 - ....Imaging EKG: Report Reviewed (Tele: Jonathan LEROY) Problem List - Problems (1) CAD (coronary artery disease) Code(s): I25.10 - ATHSCL HEART DISEASE OF [place] CORONARY ARTERY W/O ANG PCTRS Qualifiers: Coronary Disease-Associated Artery/Lesion type: [place] artery [place] vs. transplanted heart: [place] heart Associated angina: without angina Qualified Code(s): I25.10 - Atherosclerotic heart disease of [place] coronary artery without angina pectoris (2) Hypertensive cardiomyopathy Code(s): I11.9 - HYPERTENSIVE HEART DISEASE WITHOUT HEART FAILURE I42.9 - CARDIOMYOPATHY, UNSPECIFIED Qualifiers: Heart failure presence: with heart failure Qualified Code(s): I11.0 - Hypertensive heart disease with heart failure; I43 - Cardiomyopathy in diseases classified elsewhere (3) Left bundle branch block Code(s): I44.7 - LEFT BUNDLE-BRANCH BLOCK, UNSPECIFIED (4) Premature ventricular contraction Code(s): I49.3 - VENTRICULAR PREMATURE DEPOLARIZATION (5) Systolic and diastolic CHF, acute on chronic Code(s): I50.43 - ACUTE ON CHRONIC COMBINED SYSTOLIC AND DIASTOLIC HRT FAIL (6) Moderate to severe mitral regurgitation Code(s): I34.0 - NONRHEUMATIC MITRAL (VALVE) INSUFFICIENCY Assessment/Plan R&LHc at [facility] 09/28/2015. Normal right sided pressures with LVEDP and PCWP demonstrating euvolemia, nonobstrucive CAD (30% mRCA, 30% pLAD,) severely decreased LV fxn without sig valve abnormalities, remained in ventricular quadrigeminy throughout study. 09/26/2015 Moderate size, mild lateral ischemia, LVEF 29% 09/27/3015 Mildly dilated LV with mod-severely decreased LV fxn with mod-severe MR 01/09/2016 [facility] Moderately dilated LV with mod-severe LVEF 36% 1. Palpitations referable to PVC, r/o PAF 2. Acute on chronic severely decreased LV systolic failure with mod-severe MR improving 3. Non-obstructive CAD 4. Hypertensive cardiomyopathy 5. Acute on CKD with resolved hyperkalemia referable to #2 6. Left bundle branch block P:1. Continue Aldactone 25 qd and continue Lasix 20 qd with monitor diuretic response, renal fxn and electrolytes 2. Continue ASA 81 qd, uptitrated carvedilol 12.5 bid and ramipril 2.5 qd with increase as hemodynamics tolerate 3. Encourage ambulation, f/u holter results to assess PVC frequency, consider PVC ablation as outpatient if warranted 4. Has f/u with Dr. Kristian Iglesias Wed Sep 25, 2016 12:15 PM
[2016-09-16] MEDS: FUROSEMIDE 20 MG TABLET (FP) PO SCH (10:27)
[2016-09-16] MEDS: CARVEDILOL 12.5 MG TABLET (FP) PO SCH (10:28)
[2016-09-16] MEDS: CYANOCOBALAMIN 1,000 MCG TABLET (FP) PO SCH (10:28)
[2016-09-16] MEDS: CHOLECALCIFEROL (VITAMIN D3) 1,000 UNIT TABLET (FP) PO SCH (10:28)
[2016-09-16] MEDS: ASPIRIN 81 MG CHEWABLE TABLETS PO SCH (10:28)
[2016-09-16] MEDS: RAMIPRIL 2.5 MG CAPSULE (FP) PO SCH (10:28)
[2016-09-16] MEDS: PANTOPRAZOLE 40 MG TABLET (FP) PO SCH (10:28)
[2016-09-16] MEDS: HEPARIN NA (PORCINE) 5,000 UNITS/ML 1ML VIAL SQ SCH (10:28)
[2016-09-16] MEDS: SPIRONOLACTONE 25 MG TABLET (FP) PO SCH (10:28)
--- NOTE | 2016-09-16 10:45 | EKG ---
Test Reason : Blood Pressure : / mmHG Vent. Rate : 081 BPM Atrial Rate : 081 BPM P-R Int : 196 ms QRS Dur : 122 ms QT Int : 404 ms P-R-T Axes : 056 011 134 degrees QTc Int : 469 ms SINUS RHYTHM WITH FREQUENT PREMATURE VENTRICULAR COMPLEXES LEFT BUNDLE BRANCH BLOCK ABNORMAL ECG WHEN COMPARED WITH ECG OF 20-NOV-2015 16:24, LEFT BUNDLE BRANCH BLOCK HAS REPLACED NON-SPECIFIC INTRA-VENTRICULAR CONDUCTION BLOCK MINIMAL CRITERIA FOR SEPTAL INFARCT ARE NO LONGER PRESENT QT HAS SHORTENED Confirmed by CHARLA GODFREY MD ([id number]) on 09/16/2016 10:45:18 AM Referred By: Confirmed By:CHARLA GODFREY MD
--- NOTE | 2016-09-16 12:30 | HOL ---
Hook-up date: 2016-09-14 13:29:00 Duration: 22:53:00 Test Indications: ARRHYTHMIA Medications: 341241 QRS complexes 50158 Ventricular ectopics which represent 52 % of total QRS comp. * Supraventricular ectopics which represent % of total QRS comp. * Paced QRS complexs which represent % of total QRS comp. * % of Time Classified as Noise VENTRICULAR ECTOPY 48653 Isolated 1805 Bigeminal Cycles 11385 Couplets 159 Runs 477 Beats in Runs 3 Beats LONGEST at 142 BPM at 13:36:06 2016-09-14 3 Beats FASTEST at 168 BPM at 19:10:52 2016-09-14 SUPRAVENTRICULAR ECTOPY * Isolated * Couplets * Runs * Beats in Runs * Beats LONGEST at * BPM at :: -- * Beats FASTEST at * BPM at :: -- HEART RATES 47 MIN at 04:48:00 2016-09-15 84 AVG 103 MAX at 13:29:10 2016-09-14 LONGEST RR 2.032 secs at 04:59:16 2016-09-15 SCANNED BY: QUINTIN 09/15/16 1. Baseline rhythm is sinus rhythm with average rate 84 bpm and range 47-103 bpm 2. Frequent premature ventricular ectopic beats in couplets and bigeminy consisting 53% of QRS complexes 3. No premature atrial complexes 4. No ischemic ST changes, diary not submitted 5. Uptitrate carvedilol as tolerated, consider PVC ablation Confirmed by DEISY PARTIDA, LOYDA ([id number]) on 09/16/2016 12:29:51 PM Referred By: Maya NEGRON Overread By: LOYDA OLIVAS MD
--- NOTE | 2016-09-16 13:56 | PN ---
Progress Note (short form) - Note Progress Note: Renal follow up for BE[place]/CKD Pt seen and examined at the bedside reports continued [place], feels about 20% better no chest pain, abd pain, N/V/D good urine output Vital Signs Temperature 98.0 F 09/16/16 10:00 Pulse Rate 70 09/16/16 10:00 Respiratory Rate 20 09/16/16 10:00 Blood Pressure 111/44 09/16/16 10:00 O2 Sat by Pulse Oximetry (%) 98 09/16/16 10:00 Intake & Output 09/13/16 09/14/16 09/15/16 09/16/16 23:59 23:59 23:59 23:59 Intake Total 120 1070 500 300 Balance 120 1070 500 300 Weight 218 lb 215 lb 6.4 oz 216 lb Gen: NAD, awake and alert CVS: RRR, No M/R Lungs: CTA no rales Abd: soft NT/ND Ext: Trace edema in LE R>L CBC, BMP 09/15/16 11:00 09/16/16 05:35 Current Medications Aspirin (Asa -) 81 mg PO DAILY [facility] Last Admin: 09/16/16 10:28 Dose: 81 mg Carvedilol (Coreg -) 12.5 mg PO BID [facility] Last Admin: 09/16/16 10:28 Dose: 12.5 mg Cholecalciferol (Vitamin D3 -) 4,000 unit PO DAILY [facility] Last Admin: 09/16/16 10:28 Dose: 4,000 unit Cyanocobalamin (Vitamin B12 -) 1,000 mcg PO DAILY [facility] Last Admin: 09/16/16 10:28 Dose: 1,000 mcg Folic Acid (Folic Acid -) 3 mg PO TID [facility] Last Admin: 09/16/16 13:40 Dose: 3 mg Furosemide (Lasix -) 20 mg PO DAILY [facility] Last Admin: 09/16/16 10:27 Dose: 20 mg Heparin Sodium (Porcine) (Heparin -) 5,000 unit SQ BID [facility] Last Admin: 09/16/16 10:28 Dose: 5,000 unit Pantoprazole Sodium (Protonix -) 40 mg PO DAILY [facility] Last Admin: 09/16/16 10:28 Dose: 40 mg Ramipril (Altace -) 2.5 mg PO DAILY [facility] Last Admin: 09/16/16 10:28 Dose: 2.5 mg Spironolactone (Aldactone -) 25 mg PO DAILY [facility] Last Admin: 09/16/16 10:28 Dose: 25 mg Tolterodine Tartrate (Detrol La -) 2 mg PO HS [facility] Last Admin: 09/15/16 21:38 Dose: 2 mg A/P 89yF hx of chf, htn, pancreatic tumor presents with complaint of exertional sob/ palpitations over the past week and admitted with arrhythmia and CHF with Cr of 1.5 #BEAR/CKD Pt with likely progressive CKD Cr was 1.2 09/2015 Renal US shows normal structure and texture w/o evidence of obstruction urine studies not collected, will send UA, UPCR Renal function appears stable at this time pt appears evolemic continue Aldactone and Lasix as per Cardiology no NSAIDs continue ACEi Continue to trend renal function as a inpatient pt willl need continued renal follow up on discharge #Arrythmia/CHF continue Oral diuretics and ACei as per cardiology on Tele Thank you Mike Graham DO
[2016-09-16 14:59] VITALS: BP 97/53; PULSE 64; TEMP 97.5
== END 2016-09-16 17:24 | disposition home or self-care (01) | DRG 291 ==
LOC: JER 12:32 → JERBED 16:54 → OBSVTOIN 17:32 → J4W 18:07
PROVIDERS: ADMIT Family Medicine; ATTEND Family Medicine
DX: I13.0 Hypertensive heart and chronic kidney disease with heart failure and stage 1 through stage 4 chronic kidney disease, or unspecified chronic kidney disease (principal); I50.23 Acute on chronic systolic (congestive) heart failure; N17.9 Acute kidney failure, unspecified; N18.9 Chronic kidney disease, unspecified; I34.0 Nonrheumatic mitral (valve) insufficiency; K59.00 Constipation, unspecified; I49.9 Cardiac arrhythmia, unspecified; I44.7 Left bundle-branch block, unspecified; I25.10 Atherosclerotic heart disease of native coronary artery without angina pectoris; E87.5 Hyperkalemia; M47.9 Spondylosis, unspecified; M54.5 Low back pain; I49.3 Ventricular premature depolarization
CPT/HCPCS: 36415; 71010-TC; 76775-TC; 80048; 80053; 80061; 82550; 83036; 83721; 83735; 83880; 84100; 84443; 84484; 84550; 85025; 85027; 85610; 85730; 93005; 93010; 93225; 93226; 99283-25; G0378; J1644